=== PATIENT | male | born 1945 | race Caucasian/White ===

== ENCOUNTER 2018-05-01 17:14 | Emergency (ER) | payer MEDICARE, BC ==
[~2018-05-01] VITALS: Ht 177.8 cm; Wt 88.7 kg
[~2018-05-01 17:14] MED LIST: ADV50250 IH; ALBU18HF2 IH; AMBR5TAB3 PO; ASPI-1009 PO; CHOL100010 PO; CLIN-26 PO; CLIN300C85 PO; COLC0.6T67 PO; COLC0.6T69 PO; ESOM20CA PO; FISH1CAP15 PO; FURO-150 PO; GLIP2.5T17 PO; HOME OXYGEN; HYDR12.522 PO; IBUP-1985 PO; LOSA25TA96 PO; MULT-1085 PO; NAPR-1154 PO; POTA20TA84 PO; PRED50TA PO; SIMV80TA2 PO
[2018-05-01 17:46] VITALS: BP 125/81
[2018-05-01] MEDS ORDERED: HYDROcodone/acetaminophen 5mg/325mg tablet PO ONE ×2 (21:30→23:35)
[2018-05-01 21:40] LABS: BASOPHILS # (AUTO) 0.1 X10'3 (0-0.2); BASOPHILS % (AUTO) 0.5 % (0-1); EOSINOPHILS % (AUTO) 0.2 % (0-6); HEMATOCRIT 39.8 % (42.0-52.0); HEMOGLOBIN 13.1 g/dl (14.0-17.9); LYMPHOCYTES # (AUTO) 0.9 X10'3 (1.1-4.8); LYMPHOCYTES % (AUTO) 7.1 % (21-51); MEAN CORPUSCULAR VOLUME 100.1 FL (78-98); MEAN PLATELET VOLUME 8.2 FL (7.4-10.4); MONOCYTES # (AUTO) 1.1 X10'3 (0-0.9); MONOCYTES % (AUTO) 8.1 % (2-12); NEUTROPHILS # (AUTO) 11.1 X10'3 (1.8-7.7); NEUTROPHILS % (AUTO) 84.1 % (42-75); PLATELET COUNT 227 X10'3 (140-440); RED BLOOD COUNT 3.97 X10'6 (4.70-6.10); RED CELL DISTRIBUTION WIDTH 13.6 % (11.5-14.5); WHITE BLOOD COUNT 13.2 X10'3 (4.5-11.0)
[2018-05-01 21:50] LABS: INR 2.3 INR; PARTIAL THROMBOPLASTIN TIME 38 SECONDS (22-32); PROTHROMBIN TIME 22.2 SECONDS (9.0-12.0)
[2018-05-01 21:53] LABS: ALANINE AMINOTRANSFERASE 31 U/L (12-78); ALBUMIN 4.2 G/DL (3.4-5.0); ALBUMIN/GLOBULIN RATIO 1.1 (1.1-1.5); ALKALINE PHOSPHATASE 85 IU/L (46-116); ANION GAP 10 (8-16); ASPARTATE AMINO TRANSFERASE 21 U/L (10-37); BILIRUBIN,TOTAL 0.5 MG/DL (0.1-1.0); BLOOD UREA NITROGEN 22 MG/DL (7-18); CALCIUM 9.2 MG/DL (8.5-10.1); CHLORIDE 100 MMOL/L (99-107); GLUCOSE 163 MG/DL (70-104); POTASSIUM 4.5 MMOL/L (3.5-5.1); SODIUM 140 MMOL/L (135-145); TOTAL CARBON DIOXIDE 30.2 MMOL/L (24-32); eGFR 73 ML/MIN
[2018-05-01] MEDS ORDERED: dexamethasone 4mg tablet PO ONE (22:50)
[2018-05-01] MEDS ORDERED: PRED20TA PO (23:33)
[2018-05-01] MEDS ORDERED: HYDR-4383 PO (23:36)
== END 2018-05-02 00:16 | disposition home or self-care (01) ==
LOC: ER 17:15
DX: M11.222 Other chondrocalcinosis, left elbow (principal); I10 Essential (primary) hypertension; J44.9 Chronic obstructive pulmonary disease, unspecified; M10.9 Gout, unspecified; Z90.49 Acquired absence of other specified parts of digestive tract; Z88.5 Allergy status to narcotic agent; Z88.8 Allergy status to other drugs, medicaments and biological substances; Z79.82 Long term (current) use of aspirin; Z79.899 Other long term (current) drug therapy
CPT/HCPCS: 36415; 73070; 80053; 83605; 83735; 84145; 84550; 85025; 85610; 85651; 85730; 86140; 87040; 99284; J8540

== ENCOUNTER 2019-04-13 13:51 | Emergency (ER) | payer MEDICARE, BC ==
[~2019-04-13] VITALS: Ht 177.8 cm; Wt 80.0 kg
[~2019-04-13 13:51] MED LIST changes: +CLIN-90 PO; -CLIN300C85 PO; +HYDR-4383 PO
[2019-04-13 14:00] VITALS: BP 148/78
[2019-04-13] MEDS ORDERED: PRED20TA PO (16:03)
[2019-04-13] MEDS ORDERED: HYDROcodone/acetaminophen 5mg/325mg tablet PO ONE (16:15)
[2019-04-13] MEDS ORDERED: ondansetron 4mg rapidly disintigrating tab PO ONE (16:15)
[2019-04-13] MEDS ORDERED: ONDA4TAB6 PO (16:19)
[2019-04-13] MEDS ORDERED: HYDR-4383 PO (16:19)
== END 2019-04-13 16:37 | disposition home or self-care (01) ==
LOC: ER 13:52
DX: M11.221 Other chondrocalcinosis, right elbow (principal); I10 Essential (primary) hypertension; J44.9 Chronic obstructive pulmonary disease, unspecified; Z90.49 Acquired absence of other specified parts of digestive tract; Z98.890 Other specified postprocedural states; Z88.5 Allergy status to narcotic agent; Z88.8 Allergy status to other drugs, medicaments and biological substances; Z79.82 Long term (current) use of aspirin; Z79.899 Other long term (current) drug therapy
CPT/HCPCS: 99283

== ENCOUNTER 2020-12-18 12:23 | Emergency (ER) | payer MEDICARE, BC ==
[~2020-12-18] VITALS: Ht 177.8 cm; Wt 71.4 kg
[~2020-12-18 12:23] MED LIST changes: -CLIN-90 PO; +CLIN-97 PO; -COLC0.6T69 PO; +COLC0.6T72 PO; +ONDA4TAB6 PO
[2020-12-18] MEDS ORDERED: acetaminophen 325mg tablet PO ONE (12:55)
--- NOTE | 2020-12-18 12:58 | NUR ---
PT'S PULSE 36-40 IN TRIAGE, VARIABLE RATE, SEVERE BRADYCARDIA, EKG ORDERED
[2020-12-18] MEDS ORDERED: normal saline 1000ML IV soln IV ONE (16:40)
[2020-12-18 17:08] LABS: BASOPHILS % (AUTO) 0.3 % (0-1); EOSINOPHILS % (AUTO) 0.2 % (0-6); HEMATOCRIT 34.4 % (42.0-52.0); HEMOGLOBIN 11.5 g/dl (14.0-17.9); LYMPHOCYTES # (AUTO) 1.8 X10'3 (1.1-4.8); LYMPHOCYTES % (AUTO) 15.6 % (21-51); MEAN CORPUSCULAR HEMOGLOBIN 31.9 PG (27.0-31.0); MEAN CORPUSCULAR HGB CONC 33.5 g/dL (33.0-36.5); MEAN CORPUSCULAR VOLUME 95.5 FL (78-98); MEAN PLATELET VOLUME 7.8 FL (7.4-10.4); MONOCYTES # (AUTO) 1.7 X10'3 (0-0.9); MONOCYTES % (AUTO) 14.8 % (2-12); NEUTROPHILS # (AUTO) 8.1 X10'3 (1.8-7.7); NEUTROPHILS % (AUTO) 69.1 % (42-75); PLATELET COUNT 210 X10'3 (140-440); RED BLOOD COUNT 3.61 X10'6 (4.70-6.10); RED CELL DISTRIBUTION WIDTH 15.1 % (11.5-14.5); WHITE BLOOD COUNT 11.7 X10'3 (4.5-11.0)
[2020-12-18 17:21] LABS: ALANINE AMINOTRANSFERASE 24 U/L (12-78); ALBUMIN 3.1 G/DL (3.4-5.0); ALBUMIN/GLOBULIN RATIO 0.8 (1.1-1.5); ALKALINE PHOSPHATASE 63 IU/L (46-116); ANION GAP 10 (8-16); ASPARTATE AMINO TRANSFERASE 17 U/L (10-37); BILIRUBIN,TOTAL 0.5 MG/DL (0.1-1.0); BLOOD UREA NITROGEN 22 MG/DL (7-18); BUN/CREATININE RATIO 20.6 (5.4-32.0); C-REACTIVE PROTEIN 8.99 MG/DL (0.0-0.5); CALCIUM 8.2 MG/DL (8.5-10.1); CHLORIDE 103 MMOL/L (99-107); CREATININE 1.07 MG/DL (0.60-1.10); GLUCOSE 139 MG/DL (70-104); POTASSIUM 3.5 MMOL/L (3.5-5.1); SODIUM 143 MMOL/L (135-145); TOTAL CARBON DIOXIDE 30.4 MMOL/L (24-32); TOTAL PROTEIN 7.2 G/DL (6.4-8.2); eGFR 67 ML/MIN
[2020-12-18] MEDS ORDERED: CefTRIAXone 1000mg IM Kit (w/lidocaine diluent) IM ONE (17:45)
[2020-12-18 17:50] VITALS: BP 124/59
[2020-12-18] MEDS ORDERED: DOXYCYCLINE 100MG CAPSULE PO STA (17:50)
[2020-12-18] MEDS ORDERED: CEPH250T PO (17:51)
[2020-12-18] MEDS ORDERED: DOXY100C77 PO (17:51)
== END 2020-12-18 18:32 | disposition home or self-care (01) ==
LOC: ER 12:25
DX: L03.114 Cellulitis of left upper limb (principal); M25.532 Pain in left wrist; I10 Essential (primary) hypertension; J44.9 Chronic obstructive pulmonary disease, unspecified; M10.9 Gout, unspecified; Z90.49 Acquired absence of other specified parts of digestive tract; Z98.890 Other specified postprocedural states; Z88.5 Allergy status to narcotic agent; Z88.8 Allergy status to other drugs, medicaments and biological substances; Z79.82 Long term (current) use of aspirin; Z79.2 Long term (current) use of antibiotics; Z79.899 Other long term (current) drug therapy
CPT/HCPCS: 29125; 36415; 73110; 80053; 83605; 84145; 85025; 85651; 86140; 87040; 93005; 96372; 99285; J0696